=== PATIENT | female | born 1960 | race Caucasian/White ===

== ENCOUNTER 2016-10-19 12:56 | Outpatient (CLI) | payer OTHER ==
--- NOTE | 2016-10-19 14:39 | DIAGNOSTIC IMAGING REPORT ---
PROCEDURE: MG BILATERAL SCREENING W/CAD INDICATION: Screening. Family history breast carcinoma (mother). TECHNIQUE: Bilateral CC and MLO digital views. COMPARISON: Compared to 10/15/2015, 10/16/2014, and 07/28/2013. FINDINGS: Computer-aided detection applied. Moderately dense. There is a 1.2 cm asymmetry in the left upper breast (middle third, seen only on the MLO view). The rest of the breasts are unchanged. IMPRESSION: 1. There is a 1.2 cm asymmetry in the left upper breast (seen only on the MLO view). While this may represent normal asymmetric parenchyma, underlying mass or architectural distortion should be considered. Further mammographic views (true lateral view, CC and MLO spot compression views are recommended. In addition, left breast ultrasound is recommended. RESULT CODE: 0- Incomplete; needs additional evaluation. A. A negative report should not delay biopsy if a dominant or clinically suspicious mass is present. 10-15% of cancers are not identified by x-ray. B. A negative report may reinforce clinical impression. C. Adenosis and dense breasts may obscure an underlying neoplasm. D. False positive reports average 6-10%. E.. A yearly screening mammogram is recommended. A reminder letter will be scheduled.
== END 2016-10-19 23:00 ==
LOC: MAM SRH 12:56
DX: Z12.31 Encounter for screening mammogram for malignant neoplasm of breast (principal); Z80.3 Family history of malignant neoplasm of breast

== ENCOUNTER 2016-10-21 14:55 | Outpatient (CLI) | payer OTHER ==
--- NOTE | 2016-10-21 16:37 | DIAGNOSTIC IMAGING REPORT ---
PROCEDURE: MG UNILATERAL DIAG-LT W/CAD INDICATION: Follow-up left breast asymmetry. TECHNIQUE: True lateral digital view of the left breast. In addition, spot compression CC and MLO views were obtained of the upper central left breast ( region of clinical concern). Finally, high-resolution left breast ultrasound was performed (18 mHz). COMPARISON: Comparison is made to screening mammogram studies on 10/19/2016, 10/15/2015, and 10/16/2014. FINDINGS: MAMMOGRAM: Computer-aided detection applied. Moderately dense parenchymal pattern. No evidence of mass or architectural distortion. BREAST ULTRASOUND: Mildly heterogeneous normal parenchyma. No evidence of mass or cyst. IMPRESSION: 1. Negative mammogram and negative left breast ultrasound. 2. Findings discussed with the patient. 3. Resume routine screening schedule (September 2017). RESULT CODE: 1- Negative. A. A negative report should not delay biopsy if a dominant or clinically suspicious mass is present. 10-15% of cancers are not identified by x-ray. B. A negative report may reinforce clinical impression. C. Adenosis and dense breasts may obscure an underlying neoplasm. D. False positive reports average 6-10%. E.. A yearly screening mammogram is recommended. A reminder letter will be scheduled.
== END 2016-10-21 23:00 ==
LOC: MAM SRH 14:55
DX: R92.2 Inconclusive mammogram (principal)